=== PATIENT | male | born 1980 | race Caucasian/White ===

== ENCOUNTER → 2017-04-14 | Outpatient (CLI) | payer OTHER ==
[2006-05-20 10:50] VITALS: TEMP 97.9
== END ==
LOC: COL.RAD 09:37
DX: E87.8 Other disorders of electrolyte and fluid balance, not elsewhere classified (principal); R42 Dizziness and giddiness

== ENCOUNTER → 2019-08-08 | Outpatient (CLI) | payer OTHER ==
[2006-05-20 10:50] VITALS: TEMP 97.9
== END ==
LOC: COL.RAD 09:45
DX: R10.11 Right upper quadrant pain (principal)

== ENCOUNTER → 2021-07-08 | Outpatient (CLI) | payer OTHER | LOC: COL.RAD 07:09 | DX: R10.11 Right upper quadrant pain (principal) | CPT/HCPCS: Q9967 ==